=== PATIENT | male | born 1980 | race Caucasian/White ===

== ENCOUNTER 2016-10-17 13:23 | Emergency (ER) | payer SELFPAY ==
[2016-10-17 13:35] VITALS: RESP 18
[2016-10-17] MEDS ORDERED: ONDANSETRON 4 MG/2 ML VIAL IVP STA (13:35)
[2016-10-17] MEDS ORDERED: HYDROmorphone 2 MG/ML 1 ML SYRINGE IVP STA (13:35)
[2016-10-17] MEDS ORDERED: LORazepam 2 MG/ML SYRINGE IV STA (13:41)
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
[2016-10-17] MEDS ORDERED: HYDROmorphone 1 MG/ML 1 ML SYRINGE IVP STA ×2 (14:37→15:50)
[2016-10-17 15:50] VITALS: BP 140/83; PULSE 60; TEMP 98
== END 2016-10-17 16:12 | disposition short-term general hospital (02) ==
LOC: EC 13:23
DX: S82.251A Displaced comminuted fracture of shaft of right tibia, initial encounter for closed fracture (principal); S82.421A Displaced transverse fracture of shaft of right fibula, initial encounter for closed fracture; F17.200 Nicotine dependence, unspecified, uncomplicated; V86.09XA Driver of other special all-terrain or other off-road motor vehicle injured in traffic accident, initial encounter; V00.831A Fall from motorized mobility scooter, initial encounter; Y92.410 Unspecified street and highway as the place of occurrence of the external cause; Y93.39 Activity, other involving climbing, rappelling and jumping off
CPT/HCPCS: 99284; 27752; 96374; 96375 ×2; 96376 ×2; 73610; J2060; J1170 ×2; J2405